=== PATIENT | female | born 2000 | race African-American/Black ===

== ENCOUNTER 2020-03-20 13:25 | Emergency (ER) | payer OTHER ==
[2020-03-20 13:43] VITALS: BP 128/91; PULSE 100; RESP 18; TEMP 97.9
--- NOTE | 2020-03-20 14:52 | ED ---
Female Urogenital HPI - General Chief complaint: Vaginal Bleeding Stated complaint: 13wks preg, spotting Time Seen by Provider: 03/20/20 14:25 Source: patient Mode of arrival: ambulatory Limitations: no limitations - History of Present Illness Initial comments: 20-year-old female with history of hypertension, irregular periods as well as preeclampsia and presenting today for chief complaint of increased bleeding and . Patient states that she has very regular periods she states she has one or 2 a year. Patient states she has not any control and had a positive test on February 05 . Patient states that she did have symptoms that time including nausea in the morning. Patient states she has not had very many issues with vomiting she denies having any issues with abdominal pain or cramping. Patient states that 3 days ago she had spotting is very light. Patient states that she went to the [facility] where she had an ultrasound and blood work done. Patient states she was told everything was okay with baby at that time. Patient states that yesterday she had no bleeding but today she had slightly increased from the bleeding 3 days ago. States it's brownish/bright red. Patient states she continues to not have any cramping she denies any headaches vision changes shortness breath lighthead edness or leg swelling. Patient denies additional complaints. Upon arrival patient appears nontoxic in no acute distress, she states that bleeding has been on and off. Pt OBGYN is in [facility] and she is unsure of the physicians name. Unsure of ABO/Rh. Pt signed paper work to obtain records from [facility]. [facility] note mention patient stating she took test 2 weeks ago, patient history varies between visits. - Related Data Home Medications Medication Instructions Recorded Confirmed No Known Home Medications 03/20/20 03/20/20 Allergies Allergy/AdvReac Type Severity Reaction Status Date / Time No Known Allergies Allergy Verified 03/20/20 17:00 Review of Systems ROS Statement: Those systems with pertinent positive or pertinent negative responses have been documented in the HPI. ROS Other: All systems not noted in ROS Statement are negative. Past Medical History Past Medical History: No Reported History History of Any Multi-Drug Resistant Organisms: None Reported Past Surgical History: No Surgical Hx Reported Smoking Status: Never smoker Past Alcohol Use History: None Reported Past Drug Use History: None Reported General Exam - General Exam Comments Initial Comments: General: The patient is awake and alert, in no distress Eye: +3 mm pupils are equal, round and reactive to light, extra-ocular movements are intact. No nystagmus. There is normal conjunctiva bilaterally. No signs of icterus. Ears, nose, mouth and throat: There are moist mucous membranes and no oral lesions. Neck: The neck is supple, there is no tenderness or JVD. Cardiovascular: There is a regular rate and rhythm. No murmur, rub or gallop is appreciated. Respiratory: Lungs are clear to auscultation, respirations are non-labored, breath sounds are equal. No wheezes, stridor, rales, or rhonchi. Gastrointestinal: [Soft, non-distended, non-tender abdomen without masses or organomegaly noted. There is no rebound or guarding present. Pelvic: os appear closed. blood products coming from os, mild bleeding Musculoskeletal: Normal ROM, no tenderness. Strength 5/5. Sensation intact. radial pulses equal bilaterally 2+. Neurological: A&O x 3. CN II-XII intact, There are no obvious motor or sensory deficits. Coordination appears grossly intact. Speech is normal. Skin: Skin is warm and dry and no rashes or lesions are noted. Psychiatric: Cooperative, appropriate mood & affect, normal judgment. Limitations: no limitations Course Vital Signs 03/20/20 13:40 Temperature 97.9 F Pulse Rate 100 Respiratory 18 Rate Blood Pressure 128/91 O2 Sat by Pulse 98 Oximetry Medical Decision Making - Medical Decision Making Labs stable. HgB stable. ABO +, no antibodies. Pt hcg 2 days ago 2900 today 1200. IUP on US at [facility] gestational sac without yolk, IUP. Pt today no sac, products in ABEBE. Patient felt with decreasing HCG, and changes on US favorable for spontaneous . Discussed case with attending Dr. Leal who is agreeable to discharge with OBGYN f/u. Pt agreeable. - Lab Data Result diagrams: 03/20/20 14:58 03/20/20 14:58 Lab Results 03/20/20 03/20/20 03/20/20 Range/Units 14:58 14:58 14:58 WBC 5.3 (4.0-11.0) k/uL RBC 5.11 (3.80-5.40) m/uL Hgb 12.9 (11.4-16.0) gm/dL Hct 40.6 (34.0-46.0) % MCV 79.4 L (80.0-100.0) fL MCH 25.2 (25.0-35.0) pg MCHC 31.8 (31.0-37.0) g/dL RDW 13.6 (11.5-15.5) % Plt Count 234 (150-450) k/uL MPV 9.3 Neutrophils % 39 % Lymphocytes % 49 % Monocytes % 5 % Eosinophils % 3 % Basophils % 1 % Neutrophils # 2.1 (1.3-7.7) k/uL Lymphocytes # 2.6 (1.0-4.8) k/uL Monocytes # 0.3 (0-1.0) k/uL Eosinophils # 0.2 (0-0.7) k/uL Basophils # 0.0 (0-0.2) k/uL Sodium 138 (137-145) mmol/L Potassium 4.0 (3.5-5.1) mmol/L Chloride 108 H (98-107) mmol/L Carbon Dioxide 22 (22-30) mmol/L Anion Gap 8 mmol/L BUN 5 L (7-17) mg/dL Creatinine 0.66 (0.52-1.04) mg/dL Est GFR (CKD-EPI)AfAm >90 (>60 ml/min/1.73 sqM) Est GFR (CKD-EPI)NonAf >90 (>60 ml/min/1.73 sqM) Glucose 101 H (74-99) mg/dL Calcium 9.6 (8.4-10.2) mg/dL Total Bilirubin 0.7 (0.2-1.3) mg/dL AST 21 (14-36) U/L ALT 12 (4-34) U/L Alkaline Phosphatase 65 (38-126) U/L Total Protein 7.7 (6.3-8.2) g/dL Albumin 4.4 (3.5-5.0) g/dL HCG, Quant 1200.9 mIU/mL Urine Color Yellow Urine Appearance Cloudy H (Clear) Urine pH 6.0 (5.0-8.0) Ur Specific [place] 1.018 (1.001-1.035) Urine Protein 1+ H (Negative) Urine Glucose (UA) Negative (Negative) Urine Ketones Negative (Negative) Urine Blood Large H (Negative) Urine Nitrite Negative (Negative) Urine Bilirubin Negative (Negative) Urine Urobilinogen <2.0 (<2.0) mg/dL Ur Leukocyte Esterase Large H (Negative) Urine RBC >182 H (0-5) /hpf Urine WBC 54 H (0-5) /hpf Ur Squamous Epith Cells 2 (0-4) /hpf Urine Bacteria Occasional H (None) /hpf Urine Mucus Moderate H (None) /hpf Blood Type Blood Type Recheck Bld Type Recheck Status 03/20/20 Range/Units 15:39 WBC (4.0-11.0) k/uL RBC (3.80-5.40) m/uL Hgb (11.4-16.0) gm/dL Hct (34.0-46.0) % MCV (80.0-100.0) fL MCH (25.0-35.0) pg MCHC (31.0-37.0) g/dL RDW (11.5-15.5) % Plt Count (150-450) k/uL MPV Neutrophils % % Lymphocytes % % Monocytes % % Eosinophils % % Basophils % % Neutrophils # (1.3-7.7) k/uL Lymphocytes # (1.0-4.8) k/uL Monocytes # (0-1.0) k/uL Eosinophils # (0-0.7) k/uL Basophils # (0-0.2) k/uL Sodium (137-145) mmol/L Potassium (3.5-5.1) mmol/L Chloride (98-107) mmol/L Carbon Dioxide (22-30) mmol/L Anion Gap mmol/L BUN (7-17) mg/dL Creatinine (0.52-1.04) mg/dL Est GFR (CKD-EPI)AfAm (>60 ml/min/1.73 sqM) Est GFR (CKD-EPI)NonAf (>60 ml/min/1.73 sqM) Glucose (74-99) mg/dL Calcium (8.4-10.2) mg/dL Total Bilirubin (0.2-1.3) mg/dL AST (14-36) U/L ALT (4-34) U/L Alkaline Phosphatase (38-126) U/L Total Protein (6.3-8.2) g/dL Albumin (3.5-5.0) g/dL HCG, Quant mIU/mL Urine Color Urine Appearance (Clear) Urine pH (5.0-8.0) Ur Specific M[place] (1.001-1.035) Urine Protein (Negative) Urine Glucose (UA) (Negative) Urine Ketones (Negative) Urine Blood (Negative) Urine Nitrite (Negative) Urine Bilirubin (Negative) Urine Urobilinogen (<2.0) mg/dL Ur Leukocyte Esterase (Negative) Urine RBC (0-5) /hpf Urine WBC (0-5) /hpf Ur Squamous Epith Cells (0-4) /hpf Urine Bacteria (None) /hpf Urine Mucus (None) /hpf Blood Type AB Positive Blood Type Recheck No Previous Record Bld Type Recheck Status [facility] ONLY Disposition Clinical Impression: Miscarriage Disposition: HOME SELF-CARE Condition: Good Instructions (If sedation given, give patient instructions): Threatened Miscarriage (ED) Additional Instructions: Please use medication as discussed. Please follow-up with OBGYN in next week. Please return to emergency room if the symptoms increase or worsen or for any other concerns. Is patient prescribed a controlled substance at d/c from ED?: No Referrals: Nonstaff,Physician [Primary Care Provider] - 1-2 days Time of Disposition: 17:24
[2020-03-20 15:07] LABS: Basophils % (A) 1 %; Eosinophils # (A) 0.2 k/uL (0-0.7); Eosinophils % (A) 3 %; HCT 40.6 % (34.0-46.0); HGB 12.9 gm/dL (11.4-16.0); Lymphocytes # (A) 2.6 k/uL (1.0-4.8); Lymphocytes % (A) 49 %; MCH 25.2 pg (25.0-35.0); MCHC 31.8 g/dL (31.0-37.0); MCV 79.4 fL (80.0-100.0); Mean Platelet Volume 9.3; Monocytes # (A) 0.3 k/uL (0-1.0); Monocytes % (A) 5 %; Neutrophils # (A) 2.1 k/uL (1.3-7.7); Neutrophils % (A) 39 %; Platelet Count 234 k/uL (150-450); RBC 5.11 m/uL (3.80-5.40); RDW 13.6 % (11.5-15.5); WBC 5.3 k/uL (4.0-11.0)
[2020-03-20 15:12] LABS: Appearance,Urine Cloudy (Clear); Bacteria,Urine Occasional /hpf; Bilirubin,Urine Negative (Negative); Blood,Urine Large (Negative); Color,Urine Yellow; Glucose,Urine (UA) Negative (Negative); Ketones,Urine Negative (Negative); Leukocyte Esterase,Urine Large (Negative); Mucus,Urine Moderate /hpf; Nitrite,Urine Negative (Negative); Protein,Urine 1+ (Negative); RBC,Urine >182 /hpf (0-5); Specific Gravity,Urine 1.018 (1.001-1.035); Squamous Epithelial Cell,Urine 2 /hpf (0-4); Urobilinogen,Urine <2.0 mg/dL (<2.0); WBC,Urine 54 /hpf (0-5)
[2020-03-20 15:15] LABS: ALT 12 U/L (4-34); AST 21 U/L (14-36); African American GFR (CKD) >90 (>60 ml/min/1.73 sqM); Albumin 4.4 g/dL (3.5-5.0); Alkaline Phosphatase 65 U/L (38-126); Anion Gap 8 mmol/L; Blood Urea Nitrogen 5 mg/dL (7-17); Calcium 9.6 mg/dL (8.4-10.2); Carbon Dioxide 22 mmol/L (22-30); Chloride 108 mmol/L (98-107); Glucose 101 mg/dL (74-99); Non-African American GFR(CKD) >90 (>60 ml/min/1.73 sqM); Sodium 138 mmol/L (137-145); Total Bilirubin 0.7 mg/dL (0.2-1.3); Total Protein 7.7 g/dL (6.3-8.2)
[2020-03-20 15:31] LABS: HCG,Quantitative Serum 1200.9 mIU/mL
--- NOTE | 2020-03-20 17:14 | US ---
EXAMINATION TYPE: Transabdominal DATE OF EXAM: 03/20/2020 4:45 PM COMPARISON: NONE CLINICAL HISTORY: bleeding in . intermittent vaginal bleeding for 3 days EXAM PERFORMED: Transabdominal (TA) EXAM MEASUREMENTS: GESTATIONAL AGE / DATING Physician Established: Not yet established Dates by LMP: LMP unknown Dates by First Scan: No previous this is first scan Dates by Current Scan for: No IUP seen at this time MATERNAL ANATOMY Uterus: 10.3 x 4.9 x 5.4cm Right Ovary: 2.3 x 1.5 x 1.9cm Left Ovary: 2.5 x 1.6 x 1.5cm Post CDS / Adnexa: appears wnl Presence of free fluid: no GESTATION / SURVEY IUP: no evidence of IUP Date of LMP: unknown Beta HcG (if available): 1200 No evidence of IUP, anechoic area = 1.1cm within ABEBE ?possible GS IMPRESSION: There is small fluid collection in the lower uterine segment that does not have appearance of a gesta tional sac. Uterine fundus is empty. No adnexal mass. No free fluid in the pelvis.
== END 2020-03-20 18:00 | disposition home or self-care (01) ==
LOC: EC 13:25
DX: O03.9 Complete or unspecified spontaneous abortion without complication (principal)
CPT/HCPCS: 36415; 76801; 80053; 81001; 84702; 85025; 86900; 86901; 99284

== ENCOUNTER 2020-04-05 21:41 | Emergency (ER) | payer OTHER ==
[2020-04-05 21:47] VITALS: BP 126/82; PULSE 102; RESP 18; TEMP 97.9
[2020-04-05] MEDS ORDERED: SODIUM CHLORIDE 0.9% 1,000 ML IV ONE (21:59)
[2020-04-05] MEDS ORDERED: KETOROLAC 15 MG/ML 1 ML VIAL IVP STA (22:00)
--- NOTE | 2020-04-05 22:09 | ED ---
General Adult HPI - General Chief complaint: Vaginal Bleeding Stated complaint: Revisit Vaginal Bleeding/Miscarriage Time Seen by Provider: 04/05/20 21:48 Source: patient Mode of arrival: ambulatory Limitations: no limitations - History of Present Illness Initial comments: 20-year-old female patient presents to the emergency department today for evaluation of heavy vaginal bleeding. Patient states that she was diagnosed with spontaneous a little over 2 weeks ago. States that she was informed should have bleeding for around 2 weeks and that should cease. States that over the last week the bleeding has become much more heavy. States that today she has soaked through 4-5 pads. States she did have a large blood clot prior to arrival was about the size of her fist. She is reporting lower abdominal and low back cramping. She is . She is that she is feeling a little woozy and weak today. Denies history of bleeding or clotting disorder. She has not been able to follow up with her OBGYN because she is from out of town. Patient denies any recent rash, fever, chills, cough, shortness of breath, chest pain, nausea, vomiting, diarrhea, constipation, back pain, numbness, tingling, hematuria, dysuria, urinary urgency, urinary frequency, headache, visual changes, or any other complaints. - Related Data Home Medications Medication Instructions Recorded Confirmed Multivitamin/Iron/Folic Acid 1 tab PO DAILY 04/05/20 04/05/20 [Centrum Women Tablet] Allergies Allergy/AdvReac Type Severity Reaction Status Date / Time No Known Allergies Allergy Verified 04/05/20 23:23 Review of Systems ROS Statement: Those systems with pertinent positive or pertinent negative responses have been documented in the HPI. ROS Other: All systems not noted in ROS Statement are negative. Past Medical History Past Medical History: No Reported History History of Any Multi-Drug Resistant Organisms: None Reported Past Surgical History: No Surgical Hx Reported Smoking Status: Never smoker Past Alcohol Use History: None Reported Past Drug Use History: None Reported General Exam Limitations: no limitations General appearance: alert, in no apparent distress, other (Physical well- developed, well-nourished adult female patient in no acute distress. Vital signs upon presentation are temperature 97.9F, pulse 102, respirations 18, blood pressure 126/82, pulse ox 98% on room air.) Eye exam: Present: normal appearance, PERRL, EOMI. Absent: scleral icterus, conjunctival injection, periorbital swelling ENT exam: Present: normal exam, normal oropharynx, mucous membranes moist Respiratory exam: Present: normal lung sounds bilaterally. Absent: respiratory distress, wheezes, rales, rhonchi, stridor Cardiovascular Exam: Present: normal rhythm, tachycardia, normal heart sounds. Absent: systolic murmur, diastolic murmur, rubs, gallop, clicks GI/Abdominal exam: Present: soft, tenderness (Left sided abdominal tenderness), normal bowel sounds. Absent: distended, guarding, rebound, rigid External exam: Present: normal external exam Speculum exam: Present: vaginal bleeding (mild, no blood clots noted, cervical os about 1cm) Neurological exam: Present: alert, oriented X3, CN II-XII intact Psychiatric exam: Present: normal affect, normal mood Skin exam: Present: warm, dry, intact, normal color. Absent: rash Course Vital Signs 04/05/20 21:44 Temperature 97.9 F Pulse Rate 102 H Respiratory 18 Rate Blood Pressure 126/82 O2 Sat by Pulse 98 Oximetry Medical Decision Making - Medical Decision Making 20-year-old female patient presented to the emergency department today for evaluation of heavy vaginal bleeding for the last 5 or 6 days. She was diagnosed with spontaneous on 03/20/2020. Patient has been able to follow-up with her [employer]. Physical examination revealed soft nontender abd omen. Did perform pelvic examination which showed mild dark red bleeding with no clots at this time. Cervical os was roughly 1 cm. Labs reviewed and did reveal hemoglobin at 10.9. Slightly decreased from previous labs on 03 20. Vital signs have been stable while in the department, normal blood pressures, normal heart rate. She has had no fainting episodes and is currently feeling well. She'll be discharged with her [employer] for recheck as soon as possible, she is urged discuss possibility of D&C if her symptoms do not improve. Return parameters were discussed in detail. She verbalizes understanding and agrees with this plan. - Lab Data Result diagrams: 04/05/20 22:21 04/05/20 22:21 Lab Results 04/05/20 04/05/20 04/05/20 Range/Units 22:21 22:21 22:21 WBC 7.9 (4.0-11.0) k/uL RBC 4.34 (3.80-5.40) m/uL Hgb 10.9 L (11.4-16.0) gm/dL Hct 34.3 (34.0-46.0) % MCV 79.0 L (80.0-100.0) fL MCH 25.0 (25.0-35.0) pg MCHC 31.7 (31.0-37.0) g/dL RDW 14.4 (11.5-15.5) % Plt Count 238 (150-450) k/uL MPV 7.8 Neutrophils % 53 % Lymphocytes % 38 % Monocytes % 4 % Eosinophils % 2 % Basophils % 0 % Neutrophils # 4.2 (1.3-7.7) k/uL Lymphocytes # 3.0 (1.0-4.8) k/uL Monocytes # 0.3 (0-1.0) k/uL Eosinophils # 0.2 (0-0.7) k/uL Basophils # 0.0 (0-0.2) k/uL Hypochromasia Slight Sodium 137 (137-145) mmol/L Potassium 4.0 (3.5-5.1) mmol/L Chloride 107 (98-107) mmol/L Carbon Dioxide 24 (22-30) mmol/L Anion Gap 6 mmol/L BUN 5 L (7-17) mg/dL Creatinine 0.71 (0.52-1.04) mg/dL Est GFR (CKD-EPI)AfAm >90 (>60 ml/min/1.73 sqM) Est GFR (CKD-EPI)NonAf >90 (>60 ml/min/1.73 sqM) Glucose 104 H (74-99) mg/dL Calcium 9.3 (8.4-10.2) mg/dL Total Bilirubin 0.4 (0.2-1.3) mg/dL AST 21 (14-36) U/L ALT 14 (4-34) U/L Alkaline Phosphatase 61 (38-126) U/L Total Protein 6.7 (6.3-8.2) g/dL Albumin 3.9 (3.5-5.0) g/dL HCG, Quant 130.3 mIU/mL Blood Type AB Positive Blood Type Recheck AB Pos Bld Type Recheck Status No - Radiology Data Radiology results: report reviewed, image reviewed Ultrasound was obtained report reviewed in its entirety. Impression by Dr. Potter shows Complex fluid in the endometrial cavity also the cervix could relate to blood clot incomplete . No intrauterine gestational sac. No evidence of ectopic Disposition Clinical Impression: Miscarriage Disposition: HOME SELF-CARE Condition: Good Instructions (If sedation given, give patient instructions): Miscarriage (ED) Additional Instructions: Follow-up with your [employer] for recheck as soon as possible. Return to the emergency department for increased pain, uncontrolled bleeding, fainting, or fever. Return for any other new, worsening, or concerning symptoms. Is patient prescribed a controlled substance at d/c from ED?: No Referrals: None,Stated [Primary Care Provider] - 1-2 days Time of Disposition: 23:46
[2020-04-05 22:28] LABS: Basophils % (A) 0 %; Eosinophils # (A) 0.2 k/uL (0-0.7); Eosinophils % (A) 2 %; HCT 34.3 % (34.0-46.0); HGB 10.9 gm/dL (11.4-16.0); Hypochromasia Slight; Lymphocytes % (A) 38 %; MCHC 31.7 g/dL (31.0-37.0); Mean Platelet Volume 7.8; Monocytes # (A) 0.3 k/uL (0-1.0); Monocytes % (A) 4 %; Neutrophils # (A) 4.2 k/uL (1.3-7.7); Neutrophils % (A) 53 %; Platelet Count 238 k/uL (150-450); RBC 4.34 m/uL (3.80-5.40); RDW 14.4 % (11.5-15.5); WBC 7.9 k/uL (4.0-11.0)
[2020-04-05 22:36] LABS: ALT 14 U/L (4-34); AST 21 U/L (14-36); African American GFR (CKD) >90 (>60 ml/min/1.73 sqM); Albumin 3.9 g/dL (3.5-5.0); Alkaline Phosphatase 61 U/L (38-126); Anion Gap 6 mmol/L; Blood Urea Nitrogen 5 mg/dL (7-17); Calcium 9.3 mg/dL (8.4-10.2); Carbon Dioxide 24 mmol/L (22-30); Chloride 107 mmol/L (98-107); Glucose 104 mg/dL (74-99); Non-African American GFR(CKD) >90 (>60 ml/min/1.73 sqM); Sodium 137 mmol/L (137-145); Total Bilirubin 0.4 mg/dL (0.2-1.3); Total Protein 6.7 g/dL (6.3-8.2)
[2020-04-05 22:53] LABS: HCG,Quantitative Serum 130.3 mIU/mL
--- NOTE | 2020-04-05 23:36 | US ---
EXAMINATION TYPE: Transabdominal DATE OF EXAM: 04/05/2020 11:01 PM COMPARISON: US 03/20/2020 CLINICAL HISTORY: pain/bleeding/[id number] ago. Pain and bleeding, miscarriage 2 weeks ago. . EXAM PERFORMED: Transvaginal (TV) and Transabdominal (TA) EXAM MEASUREMENTS: GESTATIONAL AGE / DATING Physician Established: Not yet established Dates by LMP: Unknown Dates by First Scan: No IUP seen. Dates by Current Scan for: No definite IUP seen. MATERNAL ANATOMY Uterus: 10.7 x 6.4 x 5.2 cm. Anteverted. Complex area with peripheral/ partially internal vascularity seen in upper endometrium: 2.2 x 1.7 x 2.2 cm. Complex area seen in cervix: 2.7 x 2.6 x 1.3 cm. Right Ovary: 3.8 x 1.7 x 2.3 cm. Anechoic area seen measuring 1.3 x 1.0 x 0.7 cm. Left Ovary: 3.1 x 1.7 x 2.2 cm. Post CDS / Adnexa: Minimal fluid seen in cul de sac. Vessels measure up to 4.7 mm in left adnexa. Presence of free fluid: Yes in CDS. Presence of corpus luteal cyst: Not definitely seen. GESTATION / SURVEY IUP: No definite IUP seen at this time. Two complex areas seen, one in upper endometrium and one in cervix. No pole seen. Date of LMP: Unknown Beta HcG (if available): 130.3 IMPRESSION: Complex fluid in the endometrial cavity and also in the cervix could relate to blood clot and incompl ete . No intrauterine gestational sac seen. No evidence of ectopic .
== END 2020-04-06 00:08 | disposition home or self-care (01) ==
LOC: EC 21:41
DX: O03.9 Complete or unspecified spontaneous abortion without complication (principal); R00.0 Tachycardia, unspecified
CPT/HCPCS: 36415; 86900; 86901; 80053; 85025; 84702; 76801; 76817; 99284; 96374; 96361; J1885

== ENCOUNTER 2021-06-06 14:50 | Emergency (ER) | payer OTHER ==
[2021-06-06 14:56] VITALS: RESP 20
[2021-06-06 15:42] LABS: Appearance,Urine Clear (Clear); Bilirubin,Urine Negative (Negative); Blood,Urine Negative (Negative); Color,Urine Yellow; Glucose,Urine (UA) Negative (Negative); Ketones,Urine Negative (Negative); Leukocyte Esterase,Urine Negative (Negative); Nitrite,Urine Negative (Negative); PH, Urine 7.5 (5.0-8.0); Protein,Urine Trace (Negative); Specific Gravity,Urine 1.021 (1.001-1.035)
--- NOTE | 2021-06-06 16:00 | ED ---
Abdominal Pain HPI - General Chief Complaint: Abdominal Pain Stated Complaint: Female Time Seen by Provider: 06/06/21 15:00 Source: patient Mode of arrival: ambulatory Limitations: no limitations - History of Present Illness Initial Comments: Patient is a 21-year-old female who presents to the emergency department for intermittent pelvic pain 2 weeks. Patient states she has been experiencing mild pelvic pain bilaterally. She also reports increased urinary urgency/frequency. She denies dysuria. She does note a change in her vaginal discharge odor, unable to describe. Vaginal discharge is yellow in color. She denies vaginal bleeding. Patient has concern that she is . She does not remember her last menstrual period as she reports her periods are irregular and she does not track them. She is sexually active with one partner. She would like to be tested for STIs today. Patient denies fever, chills, generalized weakness, headache, shortness of breath, chest pain, palpitations, dizziness, abdominal pain, nausea, vomiting, and diarrhea. - Related Data Home Medications Medication Instructions Recorded Confirmed No Known Home Medications 06/06/21 06/06/21 Allergies Allergy/AdvReac Type Severity Reaction Status Date / Time No Known Allergies Allergy Verified 06/06/21 16:02 Review of Systems ROS Statement: Those systems with pertinent positive or pertinent negative responses have been documented in the HPI. ROS Other: All systems not noted in ROS Statement are negative. Past Medical History Past Medical History: No Reported History History of Any Multi-Drug Resistant Organisms: None Reported Past Surgical History: No Surgical Hx Reported Past Psychological History: No Psychological Hx Reported Smoking Status: Never smoker Past Alcohol Use History: None Reported Past Drug Use History: None Reported General Exam Limitations: no limitations General appearance: alert, in no apparent distress Head exam: Present: atraumatic, normocephalic, normal inspection Eye exam: Present: normal appearance, PERRL, EOMI. Absent: scleral icterus, conjunctival injection, periorbital swelling ENT exam: Present: normal exam Neck exam: Present: normal inspection, full ROM Respiratory exam: Present: normal lung sounds bilaterally. Absent: respiratory distress, wheezes, rales, rhonchi, stridor GI/Abdominal exam: Present: soft. Absent: distended, tenderness, guarding, rebound, rigid External exam: Present: normal external exam Back exam: Present: full ROM Neurological exam: Present: alert, oriented X3, CN II-XII intact Psychiatric exam: Present: normal affect, normal mood Skin exam: Present: warm, dry, intact, normal color. Absent: rash Course Vital Signs 06/06/21 06/06/21 14:53 19:35 Temperature 97.8 F 98.1 F Pulse Rate 98 79 Respiratory 20 20 Rate Blood Pressure 123/78 118/75 O2 Sat by Pulse 100 100 Oximetry Medical Decision Making - Medical Decision Making Patient is a 21-year-old female who presents with intermittent pelvic pain 2 weeks. Thorough history and examination were performed. I did test the patient for gonorrhea, chlamydia, Trichomonas, yeast, and bacterial vaginosis. Trichomonas is negative. Urinalysis does not show evidence for infection. U[place] [address].9. ultrasound reveals a heterogeneous interface of the placenta with the uterine wall and adjacent heterogeneous uterus, given prior findings of fibroids and he's a fever to represent fibroids and less likely placenta abruption. Placenta late is up to 4.0 cm. Patient is 20 weeks and 3 days based on ultrasound. Results discussed with Dr. Horowitz. Patient will be discharged with referral to Dr. Horowitz. She is instructed to schedule an appointment with Dr. Horowitz in 1-2 days. Patient verbalizes understanding and is agreeable to plan. Return parameters discussed. Dr. Leal is my attending. - Lab Data Result diagrams: 06/06/21 19:35 06/06/21 19:35 Lab Results 06/06/21 06/06/21 06/06/21 Range/Units 15:15 15:15 15:36 WBC (3.8-10.6) k/uL RBC (3.80-5.40) m/uL Hgb (11.4-16.0) gm/dL Hct (34.0-46.0) % MCV (80.0-100.0) fL MCH (25.0-35.0) pg MCHC (31.0-37.0) g/dL RDW (11.5-15.5) % Plt Count (150-450) k/uL MPV Neutrophils % % Lymphocytes % % Monocytes % % Eosinophils % % Basophils % % Neutrophils # (1.3-7.7) k/uL Lymphocytes # (1.0-4.8) k/uL Monocytes # (0-1.0) k/uL Eosinophils # (0-0.7) k/uL Basophils # (0-0.2) k/uL Hypochromasia Sodium (137-145) mmol/L Potassium (3.5-5.1) mmol/L Chloride (98-107) mmol/L Carbon Dioxide (22-30) mmol/L Anion Gap mmol/L BUN (7-17) mg/dL Creatinine (0.52-1.04) mg/dL Est GFR (CKD-EPI)AfAm (>60 ml/min/1.73 sqM) Est GFR (CKD-EPI)NonAf (>60 ml/min/1.73 sqM) Glucose (74-99) mg/dL Calcium (8.4-10.2) mg/dL Total Bilirubin (0.2-1.3) mg/dL AST (14-36) U/L ALT (4-34) U/L Alkaline Phosphatase (38-126) U/L Total Protein (6.3-8.2) g/dL Albumin (3.5-5.0) g/dL HCG, Quant mIU/mL Urine Color Yellow Urine Appearance Clear (Clear) Urine pH 7.5 (5.0-8.0) Ur Specific [place] 1.021 (1.001-1.035) Urine Protein Trace H (Negative) Urine Glucose (UA) Negative (Negative) Urine Ketones Negative (Negative) Urine Blood Negative (Negative) Urine Nitrite Negative (Negative) Urine Bilirubin Negative (Negative) Urine Urobilinogen 3.0 (<2.0) mg/dL Ur Leukocyte Esterase Negative (Negative) Urine HCG, Qual Detected (Not Detectd) Trichomonas Ag (Rapid) Negative (Negative) Blood Type Blood Type Recheck Bld Type Recheck Status 06/06/21 06/06/21 06/06/21 Range/Units 17:02 19:35 19:35 WBC 8.0 (3.8-10.6) k/uL RBC 4.19 (3.80-5.40) m/uL Hgb 10.6 L (11.4-16.0) gm/dL Hct 33.5 L (34.0-46.0) % MCV 79.8 L (80.0-100.0) fL MCH 25.3 (25.0-35.0) pg MCHC 31.7 (31.0-37.0) g/dL RDW 13.9 (11.5-15.5) % Plt Count 191 (150-450) k/uL MPV 8.4 Neutrophils % 56 % Lymphocytes % 37 % Monocytes % 4 % Eosinophils % 1 % Basophils % 0 % Neutrophils # 4.5 (1.3-7.7) k/uL Lymphocytes # 2.9 (1.0-4.8) k/uL Monocytes # 0.3 (0-1.0) k/uL Eosinophils # 0.1 (0-0.7) k/uL Basophils # 0.0 (0-0.2) k/uL Hypochromasia Slight Sodium 136 L (137-145) mmol/L Potassium 4.3 (3.5-5.1) mmol/L Chloride 108 H (98-107) mmol/L Carbon Dioxide 21 L (22-30) mmol/L Anion Gap 7 mmol/L BUN 5 L (7-17) mg/dL Creatinine 0.54 (0.52-1.04) mg/dL Est GFR (CKD-EPI)AfAm >90 (>60 ml/min/1.73 sqM) Est GFR (CKD-EPI)NonAf >90 (>60 ml/min/1.73 sqM) Glucose 82 (74-99) mg/dL Calcium 9.2 (8.4-10.2) mg/dL Total Bilirubin 0.5 (0.2-1.3) mg/dL AST 21 (14-36) U/L ALT 11 (4-34) U/L Alkaline Phosphatase 62 (38-126) U/L Total Protein 7.1 (6.3-8.2) g/dL Albumin 3.6 (3.5-5.0) g/dL HCG, Quant 77598.9 mIU/mL Urine Color Urine Appearance (Clear) Urine pH (5.0-8.0) Ur Specific [place] (1.001-1.035) Urine Protein (Negative) Urine Glucose (UA) (Negative) Urine Ketones (Negative) Urine Blood (Negative) Urine Nitrite (Negative) Urine Bilirubin (Negative) Urine Urobilinogen (<2.0) mg/dL Ur Leukocyte Esterase (Negative) Urine HCG, Qual (Not Detectd) Trichomonas Ag (Rapid) (Negative) Blood Type Blood Type Recheck Bld Type Recheck Status 06/06/21 Range/Units 19:35 WBC (3.8-10.6) k/uL RBC (3.80-5.40) m/uL Hgb (11.4-16.0) gm/dL Hct (34.0-46.0) % MCV (80.0-100.0) fL MCH (25.0-35.0) pg MCHC (31.0-37.0) g/dL RDW (11.5-15.5) % Plt Count (150-450) k/uL MPV Neutrophils % % Lymphocytes % % Monocytes % % Eosinophils % % Basophils % % Neutrophils # (1.3-7.7) k/uL Lymphocytes # (1.0-4.8) k/uL Monocytes # (0-1.0) k/uL Eosinophils # (0-0.7) k/uL Basophils # (0-0.2) k/uL Hypochromasia Sodium (137-145) mmol/L Potassium (3.5-5.1) mmol/L Chloride (98-107) mmol/L Carbon Dioxide (22-30) mmol/L Anion Gap mmol/L BUN (7-17) mg/dL Creatinine (0.52-1.04) mg/dL Est GFR (CKD-EPI)AfAm (>60 ml/min/1.73 sqM) Est GFR (CKD-EPI)NonAf (>60 ml/min/1.73 sqM) Glucose (74-99) mg/dL Calcium (8.4-10.2) mg/dL Total Bilirubin (0.2-1.3) mg/dL AST (14-36) U/L ALT (4-34) U/L Alkaline Phosphatase (38-126) U/L Total Protein (6.3-8.2) g/dL Albumin (3.5-5.0) g/dL HCG, Quant mIU/mL Urine Color Urine Appearance (Clear) Urine pH (5.0-8.0) Ur Specific [place] (1.001-1.035) Urine Protein (Negative) Urine Glucose (UA) (Negative) Urine Ketones (Negative) Urine Blood (Negative) Urine Nitrite (Negative) Urine Bilirubin (Negative) Urine Urobilinogen (<2.0) mg/dL Ur Leukocyte Esterase (Negative) Urine HCG, Qual (Not Detectd) Trichomonas Ag (Rapid) (Negative) Blood Type AB Positive Blood Type Recheck AB Pos Bld Type Recheck Status No Disposition Clinical Impression: Pelvic cramping, Disposition: HOME SELF-CARE Condition: Good Instructions (If sedation given, give patient instructions): (ED) Additional Instructions: Follow-up with OB at earliest available appointment. Return to the emergency department if you experience new, concerning, or worsening symptoms, including but not limited to severe pelvic/abdominal pain and vaginal bleeding. l Is patient prescribed a controlled substance at d/c from ED?: No Referrals: Antonio Sanchez MD [Primary Care Provider] - 1-2 days Radha Horowitz DO [Doctor of Osteopathic Medicine] - 1-2 days Time of Disposition: 20:37
--- NOTE | 2021-06-06 18:55 | US ---
EXAMINATION TYPE: US OB >= 14 wk fetus DATE OF EXAM: 06/06/2021 COMPARISON: US, this is first US for this . CLINICAL HISTORY: positive urine HCG Patient has irregular periods. . Patient is having minima l pelvic cramping, no vaginal bleeding. *Not an anatomy scan, limited ER growth study. TECHNIQUE: Transabdominal (TA) GESTATIONAL AGE / DATING Physician Established: Not yet established. Dates by LMP: Unknown. Dates by First Scan: This is first scan. Dates by Current Scan: (20 weeks/3 days) EDC: 10/21/2021 SURVEY IUP: Single PLACENTA: Anterior. Complex area seen, possible jones measurin.9 x 2.7 x 1.9 cm. Placenta appears heterogeneous within posterior portion. Arrow shown on images. Pt is having mild c ramping, no vaginal bleeding. PREVIA: No Previa MIS: 13.9 cm Normal CERVICAL LENGTH (transabdominal: norm > 3.0cm): 3.2 cm BIOMETRY PRESENTATION: Breech BPD: 4.65 cm 20 weeks / 0 days HC: 18.08 cm 20 weeks / 3 days AC: 15.69 cm 20 weeks / 6 days FL: 3.47 cm 21 weeks / 0 days ESTIMATED WEIGHT IN GRAMS: 378.78 grams ESTIMATED WEIGHT IN LBS/OZ: 0 lbs. 13 oz. WEIGHT PERCENTAGE BASED ON ESTABLISHED DATES: % HC/AC: 1.15 Normal FL/AC: 22.11 HEART RATE: 150 bpm RHYTHM: Normal IMPRESSION: 1. Heterogenous interface of the placenta with the uterine wall and adjacent heterogenous uterus, giv en prior findings of fibroids in 2020 these are favored to represent fibroids and less likely placent al abruption. Close clinical follow-up is recommended. Consider short-term follow-up pelvic ultrasoun d in 7 days for stability. 2.Placenta Jones up to 4.0 cm.
[2021-06-06 19:40] VITALS: BP 118/75; PULSE 79; TEMP 98.1
[2021-06-06 19:55] LABS: Basophils % (A) 0 %; Eosinophils # (A) 0.1 k/uL (0-0.7); Eosinophils % (A) 1 %; HCT 33.5 % (34.0-46.0); HGB 10.6 gm/dL (11.4-16.0); Hypochromasia Slight; Lymphocytes # (A) 2.9 k/uL (1.0-4.8); Lymphocytes % (A) 37 %; MCH 25.3 pg (25.0-35.0); MCHC 31.7 g/dL (31.0-37.0); MCV 79.8 fL (80.0-100.0); Mean Platelet Volume 8.4; Monocytes # (A) 0.3 k/uL (0-1.0); Monocytes % (A) 4 %; Neutrophils # (A) 4.5 k/uL (1.3-7.7); Neutrophils % (A) 56 %; Platelet Count 191 k/uL (150-450); RBC 4.19 m/uL (3.80-5.40); RDW 13.9 % (11.5-15.5)
[2021-06-06 20:05] LABS: ALT 11 U/L (4-34); AST 21 U/L (14-36); African American GFR (CKD) >90 (>60 ml/min/1.73 sqM); Albumin 3.6 g/dL (3.5-5.0); Alkaline Phosphatase 62 U/L (38-126); Anion Gap 7 mmol/L; Blood Urea Nitrogen 5 mg/dL (7-17); Calcium 9.2 mg/dL (8.4-10.2); Carbon Dioxide 21 mmol/L (22-30); Chloride 108 mmol/L (98-107); Glucose 82 mg/dL (74-99); Non-African American GFR(CKD) >90 (>60 ml/min/1.73 sqM); Potassium 4.3 mmol/L (3.5-5.1); Sodium 136 mmol/L (137-145); Total Bilirubin 0.5 mg/dL (0.2-1.3); Total Protein 7.1 g/dL (6.3-8.2)
[2021-06-08 07:36] LABS: C. trachomatis,PCR Positive (Neg,Equiv); Chlamydia trachomatis Source Vagina; N. gonorrhoeae,PCR Negative (Neg,Equiv); Neisseria Source Vagina
== END 2021-06-06 20:43 | disposition home or self-care (01) ==
LOC: EC 14:50
DX: O26.892 Other specified pregnancy related conditions, second trimester (principal); R10.2 Pelvic and perineal pain; Z3A.20 20 weeks gestation of pregnancy
CPT/HCPCS: 36415; 76805; 80053; 81003; 81025; 84702; 85025; 86900; 86901; 87070; 87491; 87591; 87808; 99284

== ENCOUNTER 2021-10-21 19:52 | Inpatient (IN) | payer OTHER ==
[2021-10-21] MEDS: LACTATED RINGERS 1,000 ML IV SCH ×3 (22:10→23:15)
[2021-10-21 22:22] LABS: Basophils % (A) 1 %; Eosinophils # (A) 0.1 k/uL (0-0.7); Eosinophils % (A) 2 %; HCT 37.2 % (34.0-46.0); HGB 11.6 gm/dL (11.4-16.0); Hypochromasia Slight; Lymphocytes # (A) 2.3 k/uL (1.0-4.8); Lymphocytes % (A) 29 %; MCH 25.2 pg (25.0-35.0); MCHC 31.3 g/dL (31.0-37.0); MCV 80.5 fL (80.0-100.0); Mean Platelet Volume 8.1; Monocytes # (A) 0.4 k/uL (0-1.0); Monocytes % (A) 5 %; Neutrophils # (A) 4.8 k/uL (1.3-7.7); Neutrophils % (A) 61 %; Platelet Count 164 k/uL (150-450); RBC 4.62 m/uL (3.80-5.40); RDW 14.6 % (11.5-15.5); WBC 7.9 k/uL (3.8-10.6)
[2021-10-21 22:35] LABS: Amphetamine Screen,Urine Not Detected (NotDetected); Barbiturate Screen,Urine Not Detected (NotDetected); Benzodiazepines Screen,Urine Not Detected (NotDetected); Cocaine Screen,Urine Not Detected (NotDetected); Methadone Screen, Urine Not Detected (NotDetected); Opiate Screen,Urine Not Detected (NotDetected); Oxycodone Screen, Urine Not Detected (NotDetected); Phencyclidine Screen,Urine Not Detected (NotDetected); Tricyclic Antidepressant,Urine Not Detected (NotDetected); Urn Cannabinoid Scrn Not Detected (NotDetected)
[2021-10-21 22:37] LABS: Appearance,Urine Cloudy (Clear); Bacteria,Urine Rare /hpf; Bilirubin,Urine Negative (Negative); Blood,Urine Negative (Negative); Color,Urine Yellow; Glucose,Urine (UA) Negative (Negative); Ketones,Urine Negative (Negative); Leukocyte Esterase,Urine Large (Negative); Mucus,Urine Rare /hpf; Nitrite,Urine Negative (Negative); PH, Urine 6.5 (5.0-8.0); Protein,Urine Negative (Negative); RBC,Urine 2 /hpf (0-5); Specific Gravity,Urine 1.014 (1.001-1.035); Squamous Epithelial Cell,Urine 8 /hpf (0-4); Urobilinogen,Urine <2.0 mg/dL (<2.0); WBC,Urine 5 /hpf (0-5)
[2021-10-22] MEDS: LACTATED RINGERS 1,000 ML IV SCH ×4 (04:39→14:01)
--- NOTE | 2021-10-22 08:18 | P.HPOB ---
History of Present Illness H&P Date: 10/22/21 Chief Complaint: Intrauterine at 40 and one sevenths week This is a 21 year old 3 para 05/21/2001 woman with an estimated due date of 10/21/2021 who presented to labor and delivery triage on 10/21/2021 complaining of possible rupture of membranes. She had received the majority of her care in [place] however moved to the area 3 weeks ago with int ention of delivering here. She reports her has been uncomplicated however has been on aspirin for history of preeclampsia in a pre-she has a history of 2 normal spontaneous vaginal deliveries in 2019 and 2017. Her delivery in 2018 was induced at 36 weeks for preeclampsia. She had a normal term vaginal delivery without complication in 2019. Her was dated by a 20 week ultrasound. Upon initial evaluation in labor and delivery triage rupture of membranes was negative and she was not in active labor however during her observation. heart rate tracing showed multiple late appearing heart rate decelerations. These did resolve with IV fluid resuscitation however the patient was admitted for further observation. Throughout the night she had category 2 heart tones with overall good variability and accelerations however occasional episodes of both variable and late appearing decelerations. The she therefore was admitted this morning with plans for induction of labor. At this time her record from her previous clinic has been requested. Her blood type is AB+. The patient reports she did have group B strep testing done however does not know the results. Review of Systems All systems: negative Past Medical History Past Medical History: Hypertension History of Any Multi-Drug Resistant Organisms: None Reported Past Surgical History: No Surgical Hx Reported Past Anesthesia/Blood Transfusion Reactions: No Reported Reaction Past Psychological History: No Psychological Hx Reported Smoking Status: Never smoker Past Alcohol Use History: None Reported Past Drug Use History: None Reported Medications and Allergies Home Medications Medication Instructions Recorded Confirmed Type Aspirin 1 tab PO DAILY 10/21/21 10/21/21 History Ferrous Sulfate [Iron] 1 tab PO DAILY 10/21/21 10/21/21 History Vit No.179/Iron/Folic 1 tab PO DAILY 10/21/21 10/21/21 History [ Tablet] Allergies Allergy/AdvReac Type Severity Reaction Status Date / Time No Known Allergies Allergy Verified 06/06/21 16:02 Exam Vital Signs Temp Pulse Resp BP Pulse Ox 10/22/21 00:22 97.5 F L 94 16 116/69 99 10/21/21 21:28 97.4 F L 103 H 18 127/84 10/21/21 20:13 97.4 F L 103 H 18 127/84 100 Intake and Output 10/21/21 10/22/21 10/22/21 22:59 06:59 14:59 Other: # Voids 2 2 Weight 92.533 kg This is a pleasant, comfortable appearing -[place] female who is visibly gravid. HEENT exam is unremarkable. Her breathing is unlabored and her heart is a regular rate and rhythm. The abdomen is gravid, soft and nontender with fundal height equal to gestational age. On pelvic examination the cervix is 3 cm dilated, 50% effaced and the vertex in the -3 station. Artificial rupture of membranes is undertaken and meconium-stained fluid is noted. heart tones are category 1 currently. Results Result Diagrams: 10/21/21 22:00 10/21/21 22:00 Abnormal Lab Results - Last 24 Hours (Table) 10/21/21 Range/Units 21:50 Urine Appearance Cloudy H (Clear) Ur Leukocyte Esterase Large H (Negative) Ur Squamous Epith Cells 8 H (0-4) /hpf Urine Bacteria Rare H (None) /hpf Urine Mucus Rare H (None) /hpf Assessment and Plan (1) 40 weeks gestation of Current Visit: Yes Status: Acute Code(s): Z3A.40 - 40 WEEKS GESTATION OF SNOMED Code(s): 60633454 (2) Meconium in amniotic fluid Current Visit: Yes Status: Acute Code(s): P96.83 - MECONIUM STAINING SNOMED Code(s): 9194493 (3) Category II heart rate tracing during maternal care in third trimester Current Visit: Yes Status: Acute Code(s): O36.8330 - MATERN CARE FOR ABNLT FETL HRT RATE OR RHYM, 3RD TRI, UNSP SNOMED Code(s): 289659798 Plan: 21-year-old 3 para 2 woman admitted at 40 and one sevenths weeks gestation for induction of labor secondary to category 2 heart tones during observation. I reviewed with the patient and her partner findings of meconium-stained in the amniotic fluid. Group B strep prophylactic antibiotics will be initiated due to group B strep status unknown. Her records have been requested. Blood type is AB+.
[2021-10-22] MEDS ORDERED: PENICILLIN G POTASSIUM 5,000,000 UNIT in DEXTROSE 5% IN WATER 100 ML IVPB STA ×2 (08:19)
[2021-10-22] MEDS ORDERED: OXYTOCIN 30 UNITS/500 ML NS 30 UNIT in SALINE 1 500ML.BAG IV SCH ×2 (08:30→13:15)
[2021-10-22 09:49] LABS: Hepatitis B Surface Antigen Nonreactive (Nonreactive)
[2021-10-22] MEDS ORDERED: BUTORPHANOL 1 MG/ML 1 ML VIAL IV PRN (10:26)
[2021-10-22] MEDS ORDERED: PENICILLIN G POTASSIUM 2,500,000 UNIT in DEXTROSE 5% IN WATER 100 ML IVPB SCH ×2 (13:00)
[2021-10-22] MEDS ORDERED: HYDROCORTISONE 2.5% RECTAL CREAM 30 GM TUBE RECTAL PRN (13:07)
[2021-10-22] MEDS ORDERED: BENZOCAINE/MENTHOL SPRAY 1 GM/SPRAY AEROSOL TOPICAL PRN (13:07)
[2021-10-22] MEDS ORDERED: ZOLPIDEM 5 MG TAB PO PRN (13:07)
[2021-10-22] MEDS ORDERED: diphenhydrAMINE 25 MG CAP PO PRN (13:07)
[2021-10-22] MEDS ORDERED: LANOLIN CREAM 5 GM TUBE TOPICAL PRN (13:07)
[2021-10-22] MEDS ORDERED: diphenhydrAMINE 50 MG CAP PO PRN (13:07)
[2021-10-22] MEDS ORDERED: diphenhydrAMINE 50 MG/ML 1 ML VIAL IVP PRN ×2 (13:07)
[2021-10-22] MEDS ORDERED: SIMETHICONE 80 MG CHEWABLE PO PRN (13:07)
--- NOTE | 2021-10-22 13:07 | P.PROBDLV ---
Vaginal Delivery Note - . Vaginal Delivery Note: Findings: Female in the vertex presentation with nuchal cord 1. Apgars of 8 at 1 minute and 9 at 5 minutes weighing 7 lbs. 10 oz. Intact perineum. Intact, three-vessel cord placenta. Delivery summary: This is a 21-year-old 3 para 2 woman who presented at 40 weeks gestation with complaints of rupture of membranes on 10/21/2021. Rupture of membranes and labor were ruled out however she had a category 2 heart rate tracing therefore was admitted for observation. Her had been managed in [place] and she recently moved to the area and had not seen a physician for approximately 3-4 weeks. She continued to have category 2 heart rate tracing with overall moderate variability episodes of late appearing heart rate decelerations through the night here the decision was made to induce labor this morning. Artificial rupture of membranes is undertaken at approximate 8 AM and meconium-stained fluid was noted. The patient received underwent a Pitocin induction of labor with group B strep prophylactic antibiotics secondary to group B strep status unknown. She received Stadol 1. She was approximate 7 cm at 11 AM. Repeat evaluation at approximately 1210 she remained 7 cm dilated with Formation. Maternal position changes were then undertaken. At approximately 1255 patient called out complaining of pressure and when the RN was in the room the head was spontaneously delivering. RN assisted the remainder of the delivery. A nuchal cord 1 was reduced. Apgars were 8 at 1 minute and 9 at 5 minutes. I was notified and arrived in the room approximate 5 minutes later. was vigorous on the maternal abdomen. The cord had been clamped and cut. With gentle fundal pressure the intact, three- vessel cord placenta was expelled without difficulty. The uterus was massaged and was firm below the level of the umbilicus. The vagina was inspected and no lacerations were noted. EBL appeared minimal. Both mother and infant were doing well post delivery in the room.
[2021-10-22] MEDS: IBUPROFEN 600 MG TAB PO PRN ×2 (13:32→22:06)
[2021-10-22 18:43] LABS: HIV 2 AB Non-Reactive (Non-Reactive); HIV AB P24 Non-Reactive (Non-Reactive); HIV P24 AG Non-Reactive (Non-Reactive)
[2021-10-22] MEDS: SENNOSIDES-DOCUSATE SODIUM 1 EACH TAB PO SCH (19:40)
[2021-10-22] MEDS: ACETAMINOPHEN TAB 325 MG TAB PO PRN (19:40)
[2021-10-23] MEDS: SENNOSIDES-DOCUSATE SODIUM 1 EACH TAB PO SCH ×2 (07:46→20:21)
[2021-10-23] MEDS: IBUPROFEN 600 MG TAB PO PRN ×2 (07:46→20:22)
[2021-10-23 07:55] LABS: Basophils # (A) 0.1 k/uL (0-0.2); Basophils % (A) 0 %; Eosinophils # (A) 0.1 k/uL (0-0.7); Eosinophils % (A) 1 %; HGB 11.2 gm/dL (11.4-16.0); Hypochromasia Slight; Lymphocytes # (A) 2.8 k/uL (1.0-4.8); Lymphocytes % (A) 23 %; MCH 25.8 pg (25.0-35.0); MCHC 32.1 g/dL (31.0-37.0); MCV 80.3 fL (80.0-100.0); Mean Platelet Volume 8.6; Monocytes # (A) 0.7 k/uL (0-1.0); Monocytes % (A) 6 %; Neutrophils # (A) 8.2 k/uL (1.3-7.7); Neutrophils % (A) 68 %; Platelet Count 156 k/uL (150-450); RBC 4.36 m/uL (3.80-5.40); RDW 14.6 % (11.5-15.5)
--- NOTE | 2021-10-23 12:35 | P.DS ---
Providers Date of admission: 10/22/21 11:14 Expected date of discharge: 10/23/21 Attending physician: Evelin Barney Primary care physician: Stated None - Discharge Diagnosis(es) (1) 40 weeks gestation of Current Visit: Yes Status: Acute (2) Meconium in amniotic fluid Current Visit: Yes Status: Acute (3) Category II heart rate tracing during maternal care in third trimester Current Visit: Yes Status: Acute (4) Perineal laceration with delivery, first degree Current Visit: Yes Status: Acute (5) Normal spontaneous vaginal delivery Current Visit: Yes Status: Acute Hospital Course: This is a 21-year-old 3 now para 3 woman who is admitted at 40 weeks g estation for rule out labor. She was not in labor however during her observation. She was noted to have category 2 heart tones with intermittent episodes of late heart rate did decelerations and an otherwise reassuring tracing with good variability. She was observed throughout the night with ongoing category 2 heart tones therefore decision was made to proceed with admission and induction of labor. With artificial rupture of membrane she was noted to have meconium-stained fluid. She underwent Pitocin induction of labor per protocol. She received Stadol 1. She progressed to 7 cm dilated and then had a very precipitous unintended vaginal delivery of a liveborn female infant with a nuchal cord 1. I was in attendance immediately following delivery and expressed an intact placenta. She had a first-degree laceration which was repaired in the usual fashion. Apgars were 8 at 1 minute and 9 at 5 minutes and weight was 7 lbs. 10 oz. Please see the delivery summary for details. The patient's course was unremarkable. By day #1 she was ambulating and voiding without difficulty. Her vital signs were stable. Her labs were all within normal limits. She was breast-feeding successfully. She was therefore discharged home with routine instructions for care and follow-up. Procedures: Normal spontaneous vaginal delivery Patient Condition at Discharge: Good Plan - Discharge Summary New Discharge Prescriptions: No Action Vit No.179/Iron/Folic [ Tablet] 1 tab PO DAILY Ferrous Sulfate [Iron] 1 tab PO DAILY Aspirin 1 tab PO DAILY Discharge Medication List Aspirin 1 tab PO DAILY 10/21/21 [History] Ferrous Sulfate [Iron] 1 tab PO DAILY 10/21/21 [History] Vit No.179/Iron/Folic [ Tablet] 1 tab PO DAILY 10/21/21 [History] Follow up Appointment(s)/Referral(s): Evelin Barney MD [STAFF PHYSICIAN] - 6 Weeks Activity/Diet/Wound Care/Special Instructions: Follow-up in the office in 6 weeks . Call with any concerning signs or symptoms including heavy vaginal bleeding, severe abdominal pain, fever greater than 101, swelling or redness of the lower extremities, foul vaginal discharge, or signs of depression. Nothing in the vagina for 6 weeks after delivery, specifically no intercourse. Discharge Disposition: HOME SELF-CARE
[2021-10-23 13:20] LABS: C. trachomatis,PCR Positive (Neg,Equiv); Chlamydia trachomatis Source Urine; N. gonorrhoeae,PCR Negative (Neg,Equiv); Neisseria Source Urine
[2021-10-23] MEDS: ACETAMINOPHEN TAB 325 MG TAB PO PRN (23:49)
[2021-10-24] MEDS: IBUPROFEN 600 MG TAB PO PRN ×2 (04:05→16:06)
[2021-10-24 08:57] VITALS: RESP 16
[2021-10-24] MEDS: SENNOSIDES-DOCUSATE SODIUM 1 EACH TAB PO SCH (08:59)
[2021-10-24 16:29] VITALS: BP 102/63; PULSE 73; TEMP 98.3
== END 2021-10-24 18:30 | disposition home or self-care (01) | DRG 806 ==
LOC: FBPOP 19:52 → 4FBP 21:24 → OBSVTOIN 10-22 11:14
PROVIDERS: ADMIT Obstetrics & Gynecology; ATTEND Obstetrics & Gynecology
PROC: 10E0XZZ Delivery of Products of Conception, External Approach (ICD-10-PCS; principal; 2021-10-22)
PROC: 0HQ9XZZ Repair Perineum Skin, External Approach (ICD-10-PCS; 2021-10-22)
PROC: 10907ZC Drainage of Amniotic Fluid, Therapeutic from Products of Conception, Via Natural or Artificial Opening (ICD-10-PCS; 2021-10-22)
PROC: 4A0HXCZ Measurement of Products of Conception, Cardiac Rate, External Approach (ICD-10-PCS; 2021-10-22)
PROC: 3E033VJ Introduction of Other Hormone into Peripheral Vein, Percutaneous Approach (ICD-10-PCS; 2021-10-22)
DX: O76 Abnormality in fetal heart rate and rhythm complicating labor and delivery (principal); O10.92 Unspecified pre-existing hypertension complicating childbirth; Z37.0 Single live birth; O69.81X0 Labor and delivery complicated by cord around neck, without compression, not applicable or unspecified; O70.0 First degree perineal laceration during delivery; O77.0 Labor and delivery complicated by meconium in amniotic fluid; Z3A.40 40 weeks gestation of pregnancy; Z79.82 Long term (current) use of aspirin; Z87.59 Personal history of other complications of pregnancy, childbirth and the puerperium
CPT/HCPCS: 59025; 80306; 81001; 82947; 84112; 85025; 86762; 86780; 86850; 86900; 86901; 87081; 87340; 87390; 87491; 87591; 88307; 99213

== ENCOUNTER 2022-01-03 15:31 | Emergency (ER) | payer OTHER ==
[2022-01-03 15:42] VITALS: BP 114/67; PULSE 111; RESP 18; TEMP 98.4
[2022-01-03] MEDS ORDERED: DIPH,PERTUS(ACELL)TETVAC-LF 0.5 ML VIAL IM ONE (15:52)
[2022-01-03] MEDS ORDERED: IBUPROFEN 800 MG TAB PO STA (15:52)
[2022-01-03] MEDS ORDERED: ORPHENADRINE 30 MG/ML 2 ML VIAL IM STA (15:52)
[2022-01-03] MEDS ORDERED: BACITRACIN OINT 1 EACH PACKET TOPICAL ONE (15:53)
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
--- NOTE | 2022-01-03 16:12 | XR ---
EXAMINATION TYPE: XR chest 2V DATE OF EXAM: 01/03/2022 COMPARISON: NONE HISTORY: Chest pain TECHNIQUE: Frontal and lateral views of the chest are obtained. FINDINGS: There is no focal air space opacity. No evidence for pneumothorax. No pleural effusion. The cardiac silhouette size is within normal limits. The osseous structures are grossly intact. IMPRESSION: 1. No acute cardiopulmonary process.
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
== END 2022-01-03 16:51 | disposition home or self-care (01) ==
LOC: EC 15:31
DX: S00.81XA Abrasion of other part of head, initial encounter (principal); Z23 Encounter for immunization; I10 Essential (primary) hypertension; F17.290 Nicotine dependence, other tobacco product, uncomplicated; Z79.82 Long term (current) use of aspirin; V49.50XA Passenger injured in collision with unspecified motor vehicles in traffic accident, initial encounter
CPT/HCPCS: 71046; 72125; 70450; 90715; 99285; 90471; 96372; J2360

== ENCOUNTER 2023-09-21 10:06 | Emergency (ER) | payer OTHER ==
--- NOTE | 2023-09-21 10:24 | ED ---
Abdominal Pain HPI - General Chief Complaint: Abdominal Pain Stated Complaint: Abdominal Pain Time Seen by Provider: 09/21/23 10:20 Source: patient, RN notes reviewed Mode of arrival: ambulatory Limitations: no limitations - History of Present Illness Initial Comments: This is a 23-year-old female with no significant past medical history who presents to the emergency department chief complaint of 3 days of intermittent pelvic and abdominal pain. Patient has a history of uterine fibroids. States that she has irregular menstrual cycles and has a Nexplanon in place. She endorses dysuria, increase in urinary frequency and urgency, and bladder spasms where she took Azo [id number] about a week ago. She has been experiencing left-sided flank pain the last few days as well. She denies fevers, nausea, vomiting, vaginal discharge, previous abdominal surgeries, hematochezia. - Related Data Home Medications Medication Instructions Recorded Confirmed Aspirin 1 tab PO DAILY 10/21/21 10/21/21 Ferrous Sulfate [Iron] 1 tab PO DAILY 10/21/21 10/21/21 Vit No.179/Iron/Folic 1 tab PO DAILY 10/21/21 10/21/21 [ Tablet] Previous Rx's Medication Instructions Recorded Cyclobenzaprine [Flexeril] 10 mg PO TID PRN #15 tab 01/03/22 Ibuprofen [Motrin] 800 mg PO Q6HR #30 tab 01/03/22 Nitrofurantoin Monohyd/M-Cryst 100 mg PO Q12HR #14 cap 09/21/23 [Macrobid] Allergies Allergy/AdvReac Type Severity Reaction Status Date / Time No Known Allergies Allergy Verified 01/03/22 15:42 Review of Systems ROS Statement: Those systems with pertinent positive or pertinent negative responses have been documented in the HPI. ROS Other: All systems not noted in ROS Statement are negative. Past Medical History Past Medical History: Hypertension Additional Past Medical History / Comment(s): uterine fibroids History of Any Multi-Drug Resistant Organisms: None Reported Past Surgical History: No Surgical Hx Reported Past Anesthesia/Blood Transfusion Reactions: No Reported Reaction Past Psychological History: No Psychological Hx Reported Smoking Status: Vaper Past Alcohol Use History: Occasional Past Drug Use History: None Reported General Exam - General Exam Comments Initial Comments: Visual Physical Exam Vital signs reviewed General: Well-appearing, nontoxic, no acute distress. Head: Normocephalic, atraumatic Eyes: PERRLA, EOMI ENT: Airway patent Chest: Nonlabored breathing Skin: No visual rash, normal skin tone Neuro: Alert and oriented 3 Musculoskeletal: No gross abnormalities Limitations: no limitations General appearance: alert, in no apparent distress Head exam: Present: atraumatic, normocephalic, normal inspection Eye exam: Present: normal appearance, PERRL, EOMI. Absent: scleral icterus, conjunctival injection, periorbital swelling ENT exam: Present: normal exam, mucous membranes moist Neck exam: Present: normal inspection. Absent: tenderness, meningismus, lymphad enopathy Respiratory exam: Present: normal lung sounds bilaterally. Absent: respiratory distress, wheezes, rales, rhonchi, stridor Cardiovascular Exam: Present: regular rate, normal rhythm, normal heart sounds. Absent: systolic murmur, diastolic murmur, rubs, gallop, clicks GI/Abdominal exam: Present: soft, tenderness (left lower quadrant and pelvis), normal bowel sounds. Absent: guarding, rebound, rigid External exam: Present: normal external exam. Absent: erythema, swelling Speculum exam: Present: normal speculum exam. Absent: erythema, vaginal discharge By manual exam: Present: normal by manual exam. Absent: cervical motion tenderness Extremities exam: Present: normal inspection, full ROM, normal capillary refill. Absent: tenderness, pedal edema, joint swelling, calf tenderness Back exam: Present: normal inspection, full ROM, CVA tenderness (L) Neurological exam: Present: alert, oriented X3, CN II-XII intact Psychiatric exam: Present: normal affect, normal mood Skin exam: Present: warm, dry, intact, normal color. Absent: rash Course Vital Signs 09/21/23 09/21/23 10:10 13:06 Temperature 98.2 F 98 F Pulse Rate 87 69 Respiratory 18 18 Rate Blood Pressure 127/80 125/77 O2 Sat by Pulse 98 99 Oximetry Medical Decision Making - Medical Decision Making I completed the quick note portion of this chart signed Alejandra Clements PA-C Was pt. sent in by a medical professional or institution ([facility], [facility], urgent care, hospital, or senior care...) When possible be specific @ -No Did you speak to anyone other than the patient for history (EMS, parent, family, police, friend...)? What history was obtained from this source @ -No Did you review nursing and triage notes (agree or disagree)? Why? @ -I reviewed and agree with nursing and triage notes Were old charts reviewed (outside hosp., previous admission, EMS record, old EKG, old radiological studies, urgent care reports/EKG's, senior care records)? Report findings @ -No old charts were reviewed Differential Diagnosis (chest pain, altered mental status, abdominal pain women, abdominal pain men, vaginal bleeding, weakness, fever, dyspnea, syncope, headache, dizziness, GI bleed, back pain, seizure, CVA, palpatations, mental health, musculoskeletal)? @ -Differential Abdominal Pain Women: Appendicitis, Cholecystitis, diverticulosis, ischemic bowel, pancreatitis, hepatitis, UTI, gastroenteritis, AAA, incarcerated hernia, bowel obstruction, constipation, inflammatory bowel, hepatitis, peptic ulcer disease, splenic inf arction, perforated viscus, vulvitis, ovarian torsion, PID, kidney stone, placenta abruption, this is not meant to be an all-inclusive list EKG interpreted by me (3pts min.). @ -None X-rays interpreted by me (1pt min.). @ -None done CT interpreted by me (1pt min.). @ -None done U/S interpreted by me (1pt. min.). @ -Transvaginal ultrasound no acute process, ovaries with bilateral blood flow, uterus within normal limits. What testing was considered but not performed or refused? (CT, X-rays, U/S, labs)? Why? @ - What meds were considered but not given or refused? Why? @ -Pain medication was offered but deferred by the patient due to her pain not requiring medication at this time. Did you discuss the management of the patient with other professionals (professionals i.e. , PA, [facility], lab, RT, psych nurse, licensed social worker, drug safety associate, teacher, forest fire management officer, clinical case manager)? Give summary @ -No Was smoking cessation discussed for >3mins.? @ -No Was critical care preformed (if so, how long)? @ -No Were there social determinants of health that impacted care today? How? (Homelessness, low income, unemployed, alcoholism, drug addiction, transportation, low edu. Level, literacy, decrease access to med. care, residential, rehab)? @ -No Was there de-escalation of care discussed even if they declined (Discuss DNR or withdrawal of care, Hospice)? DNR status @ -No What co-morbidities impacted this encounter? (DM, HTN, Smoking, COPD, CAD, Cancer, CVA, ARF, Chemo, Hep., AIDS, mental health diagnosis, sleep apnea, morbid obesity)? @ -None Was patient admitted / discharged? Hospital course, mention meds given and route, prescriptions, significant lab abnormalities, going to OR and other pertinent info. @ -23-year-old female with abdominal and pelvic pain. Lamination patient is noted to have mild suprapubic tenderness on palpation with associated left-sided flank pain. At this time patient will be evaluated via labs and urinalysis. Patient was offered pain medication but declined at this time. CBC, CMP and coagulation profile unremarkable. Urinalysis reveals trace leukocyte esterase a nd many bacteria. initial urinalysis reveals a large quantity of squamous epithelial cells therefore repeat urine sent to rule out infection. Repeat urinalysis remarkable for a cloudy appearance, trace leukocyte esterase, and occasional bacteria. Patient will be sent a prescription for Macrobid to treat a acute cystitis. Recommend the patient follows with her primary care provider within this calendar week for further evaluation. Vital stable. All questions answered at bedside. Strict return parameters discussed with the patient. Case discussed with Dr. Pineda Undiagnosed new problem with uncertain prognosis? @ -No Drug Therapy requiring intensive monitoring for toxicity (Heparin, Nitro, Insulin, Cardizem)? @ -No Were any procedures done? @ -No Diagnosis/symptom? @ -Acute cystitis, abdominal pain, pelvic pain Acute, or Chronic, or Acute on Chronic? @ -Acute Uncomplicated (without systemic symptoms) or Complicated (systemic symptoms)? @ -Uncomplicated Side effects of treatment? @ -No Exacerbation, Progression, or Severe Exacerbation? @ -No Poses a threat to life or bodily function? How? (Chest pain, [place], [place], pneumonia, PE, COPD, DKA, ARF, appy, cholecystitis, CVA, Diverticulitis, Homicidal, Suicidal, threat to staff... and all critical care pts) @ -No - Lab Data Result diagrams: 09/21/23 10:58 09/21/23 10:58 Lab Results 09/21/23 09/21/23 09/21/23 Range/Units 10:15 10:15 10:58 WBC 5.9 (3.8-10.6) k/uL RBC 5.08 (3.80-5.40) m/uL Hgb 12.1 (11.4-16.0) gm/dL Hct 40.4 (34.0-46.0) % MCV 79.4 L (80.0-100.0) fL MCH 23.8 L (25.0-35.0) pg MCHC 30.0 L (31.0-37.0) g/dL RDW 14.4 (11.5-15.5) % Plt Count 210 (150-450) k/uL MPV 8.0 Neutrophils % 45 % Lymphocytes % 45 % Monocytes % 6 % Eosinophils % 2 % Basophils % 1 % Neutrophils # 2.6 (1.3-7.7) k/uL Lymphocytes # 2.6 (1.0-4.8) k/uL Monocytes # 0.3 (0-1.0) k/uL Eosinophils # 0.1 (0-0.7) k/uL Basophils # 0.0 (0-0.2) k/uL Hypochromasia Slight PT (10.0-12.5) sec INR (<1.2) APTT (22.0-30.0) sec Sodium (137-145) mmol/L Potassium (3.5-5.1) mmol/L Chloride (98-107) mmol/L Carbon Dioxide (22-30) mmol/L Anion Gap mmol/L BUN (7-17) mg/dL Creatinine (0.52-1.04) mg/dL Est GFR (CKD-EPI)AfAm (>60 ml/min/1.73 sqM) Est GFR (CKD-EPI)NonAf (>60 ml/min/1.73 sqM) Glucose (74-99) mg/dL Calcium (8.4-10.2) mg/dL Total Bilirubin (0.2-1.3) mg/dL AST (14-36) U/L ALT (4-34) U/L Alkaline Phosphatase (38-126) U/L Total Protein (6.3-8.2) g/dL Albumin (3.5-5.0) g/dL Lipase (23-300) U/L Urine Color Yellow Urine Appearance Cloudy H (Clear) Urine pH 6.5 (5.0-8.0) Ur Specific [place] 1.019 (1.001-1.035) Urine Protein Negative (Negative) Urine Glucose (UA) Negative (Negative) Urine Ketones Negative (Negative) Urine Blood Negative (Negative) Urine Nitrite Negative (Negative) Urine Bilirubin Negative (Negative) Urine Urobilinogen 3.0 (<2.0) mg/dL Ur Leukocyte Esterase Trace H (Negative) Urine RBC 2 (0-5) /hpf Urine WBC 3 (0-5) /hpf Ur Squamous Epith Cells 22 H (0-4) /hpf Urine Bacteria Many H (None) /hpf Urine Mucus Rare H (None) /hpf Urine HCG, Qual Not Detected (Not Detectd) 09/21/23 09/21/23 09/21/23 Range/Units 10:58 10:58 12:21 WBC (3.8-10.6) k/uL RBC (3.80-5.40) m/uL Hgb (11.4-16.0) gm/dL Hct (34.0-46.0) % MCV (80.0-100.0) fL MCH (25.0-35.0) pg MCHC (31.0-37.0) g/dL RDW (11.5-15.5) % Plt Count (150-450) k/uL MPV Neutrophils % % Lymphocytes % % Monocytes % % Eosinophils % % Basophils % % Neutrophils # (1.3-7.7) k/uL Lymphocytes # (1.0-4.8) k/uL Monocytes # (0-1.0) k/uL Eosinophils # (0-0.7) k/uL Basophils # (0-0.2) k/uL Hypochromasia PT 11.2 (10.0-12.5) sec INR 1.0 (<1.2) APTT 25.6 (22.0-30.0) sec Sodium 139 (137-145) mmol/L Potassium 3.9 (3.5-5.1) mmol/L Chloride 108 H (98-107) mmol/L Carbon Dioxide 24 (22-30) mmol/L Anion Gap 7 mmol/L BUN 11 (7-17) mg/dL Creatinine 0.76 (0.52-1.04) mg/dL Est GFR (CKD-EPI)AfAm >90 (>60 ml/min/1.73 sqM) Est GFR (CKD-EPI)NonAf >90 (>60 ml/min/1.73 sqM) Glucose 94 (74-99) mg/dL Calcium 9.2 (8.4-10.2) mg/dL Total Bilirubin 1.1 (0.2-1.3) mg/dL AST 24 (14-36) U/L ALT 12 (4-34) U/L Alkaline Phosphatase 84 (38-126) U/L Total Protein 7.9 (6.3-8.2) g/dL Albumin 4.5 (3.5-5.0) g/dL Lipase 97 (23-300) U/L Urine Color Light Yellow Urine Appearance Cloudy H (Clear) Urine pH 6.5 (5.0-8.0) Ur Specific [place] 1.016 (1.001-1.035) Urine Protein Negative (Negative) Urine Glucose (UA) Negative (Negative) Urine Ketones Negative (Negative) Urine Blood Negative (Negative) Urine Nitrite Negative (Negative) Urine Bilirubin Negative (Negative) Urine Urobilinogen 2.0 (<2.0) mg/dL Ur Leukocyte Esterase Trace H (Negative) Urine RBC <1 (0-5) /hpf Urine WBC 2 (0-5) /hpf Ur Squamous Epith Cells 12 H (0-4) /hpf Urine Bacteria Occasional H (None) /hpf Urine Mucus Rare H (None) /hpf Urine HCG, Qual (Not Detectd) Disposition Clinical Impression: Pelvic pain, Abdominal pain, Cystitis Disposition: HOME SELF-CARE Condition: Good Instructions (If sedation given, give patient instructions): Abdominal Pain (ED) Additional Instructions: Return to the emergency department if symptoms worsen or not improve. Follow-up with your primary care provider in the next 3 days for further evaluation. Prescriptions: Nitrofurantoin Monohyd/M-Cryst [Macrobid] 100 mg PO Q12HR #14 cap Is patient prescribed a controlled substance at d/c from ED?: No Referrals: None,Stated [Primary Care Provider] - 1-2 days Time of Disposition: 12:39
[2023-09-21 11:08] LABS: Appearance,Urine Cloudy (Clear); Bacteria,Urine Many /hpf; Bilirubin,Urine Negative (Negative); Blood,Urine Negative (Negative); Color,Urine Yellow; Glucose,Urine (UA) Negative (Negative); Ketones,Urine Negative (Negative); Leukocyte Esterase,Urine Trace (Negative); Mucus,Urine Rare /hpf; Nitrite,Urine Negative (Negative); PH, Urine 6.5 (5.0-8.0); Protein,Urine Negative (Negative); RBC,Urine 2 /hpf (0-5); Specific Gravity,Urine 1.019 (1.001-1.035); Squamous Epithelial Cell,Urine 22 /hpf (0-4); WBC,Urine 3 /hpf (0-5)
[2023-09-21 11:16] LABS: Basophils % (A) 1 %; Eosinophils # (A) 0.1 k/uL (0-0.7); Eosinophils % (A) 2 %; HCT 40.4 % (34.0-46.0); HGB 12.1 gm/dL (11.4-16.0); Hypochromasia Slight; Lymphocytes # (A) 2.6 k/uL (1.0-4.8); Lymphocytes % (A) 45 %; MCH 23.8 pg (25.0-35.0); MCV 79.4 fL (80.0-100.0); Monocytes # (A) 0.3 k/uL (0-1.0); Monocytes % (A) 6 %; Neutrophils # (A) 2.6 k/uL (1.3-7.7); Neutrophils % (A) 45 %; Platelet Count 210 k/uL (150-450); RBC 5.08 m/uL (3.80-5.40); RDW 14.4 % (11.5-15.5); WBC 5.9 k/uL (3.8-10.6)
[2023-09-21 11:23] LABS: Partial Thromboplastin Time 25.6 sec (22.0-30.0); Prothrombin Time 11.2 sec (10.0-12.5)
[2023-09-21 11:26] LABS: ALT 12 U/L (4-34); AST 24 U/L (14-36); African American GFR (CKD) >90 (>60 ml/min/1.73 sqM); Albumin 4.5 g/dL (3.5-5.0); Alkaline Phosphatase 84 U/L (38-126); Anion Gap 7 mmol/L; Blood Urea Nitrogen 11 mg/dL (7-17); Calcium 9.2 mg/dL (8.4-10.2); Carbon Dioxide 24 mmol/L (22-30); Chloride 108 mmol/L (98-107); Glucose 94 mg/dL (74-99); Lipase 97 U/L (23-300); Non-African American GFR(CKD) >90 (>60 ml/min/1.73 sqM); Potassium 3.9 mmol/L (3.5-5.1); Sodium 139 mmol/L (137-145); Total Bilirubin 1.1 mg/dL (0.2-1.3); Total Protein 7.9 g/dL (6.3-8.2)
--- NOTE | 2023-09-21 12:30 | US ---
EXAMINATION TYPE: US transvaginal DATE OF EXAM: 09/21/2023 COMPARISON: NONE CLINICAL INDICATION: Female, 23 years old with history of pelvic pain, hx of fibroids; pelvic pain on going for 4 months, , irregular cycles, only 1 cycler per year TECHNIQUE: TV. Transvaginal sonographic images Date of LMP: unknown EXAM MEASUREMENTS: Uterus: 9.0 x 5.4 x 3.9 cm Endometrial Stripe: 0.2 cm Right Ovary: 2.9 x 1.7 x 1.8 cm Left Ovary: 2.1 x 1.8 x 1.7 cm 1. Uterus: Anteverted wnl 2. Endometrium: wnl 3. Right Ovary: dominate follicle seen = 1.2 x 1.0 x 1.0cm 4. Left Ovary: follicles seen Spectral, color and waveform doppler imaging shows good arterial and venous flow within the ovaries ; there is no evidence for ovarian torsion. 5. Bilateral Adnexa: wnl 6. Posterior cul-de-sac: wnl IMPRESSION: * No evidence for acute process. * Endometrium within normal limits for thickness. * Appropriate arterial and venous waveforms to the ovaries.
[2023-09-21 12:46] LABS: Appearance,Urine Cloudy (Clear); Bacteria,Urine Occasional /hpf; Bilirubin,Urine Negative (Negative); Blood,Urine Negative (Negative); Color,Urine Light Yellow; Glucose,Urine (UA) Negative (Negative); Ketones,Urine Negative (Negative); Leukocyte Esterase,Urine Trace (Negative); Mucus,Urine Rare /hpf; Nitrite,Urine Negative (Negative); PH, Urine 6.5 (5.0-8.0); Protein,Urine Negative (Negative); RBC,Urine <1 /hpf (0-5); Specific Gravity,Urine 1.016 (1.001-1.035); Squamous Epithelial Cell,Urine 12 /hpf (0-4); WBC,Urine 2 /hpf (0-5)
[2023-09-21 13:25] VITALS: BP 125/77; PULSE 69; RESP 18; TEMP 98
== END 2023-09-21 13:06 | disposition home or self-care (01) ==
LOC: EC 10:06
DX: N30.90 Cystitis, unspecified without hematuria (principal); F17.290 Nicotine dependence, other tobacco product, uncomplicated
CPT/HCPCS: 36415; 76830; 80053; 81001; 81025; 83690; 85025; 85610; 85730; 93975; 99284

== ENCOUNTER 2024-09-28 15:02 | Emergency (ER) | payer OTHER ==
[2024-09-28 15:19] VITALS: BP 117/78; PULSE 93; RESP 16; TEMP 98.3
[2024-09-28 15:40] LABS: Basophils # (A) 0.04 10*3/uL (0.00-0.10); Basophils % (A) 0.4 %; Eosinophils # (A) 0.07 10*3/uL (0.04-0.35); Eosinophils % (A) 0.6 %; HCT 31.9 % (37.2-46.3); HGB 10.6 g/dL (12.0-15.0); Lymphocytes # (A) 2.52 10*3/uL (0.90-5.00); Lymphocytes % (A) 22.4 %; MCH 24.9 pg (27.0-32.0); MCHC 33.2 g/dL (32.0-37.0); MCV 75.1 fL (80.0-97.0); Mean Platelet Volume 12.1 fL (9.5-12.2); Monocytes # (A) 0.73 10*3/uL (0.20-1.00); Monocytes % (A) 6.5 %; Neutrophils # (A) 7.85 10*3/uL (1.80-7.70); Neutrophils % (A) 69.7 %; Platelet Count 224 10*3/uL (140-440); RBC 4.25 10*6/uL (4.10-5.20); RDW 14.6 % (11.5-14.5); WBC 11.25 10*3/uL (4.50-10.00)
--- NOTE | 2024-09-28 15:50 | ED ---
General Adult HPI - General Chief complaint: Abdominal Pain Stated complaint: Abd pain Time Seen by Provider: 09/28/24 15:20 Source: patient, RN notes reviewed Mode of arrival: ambulatory Limitations: no limitations - History of Present Illness Initial comments: This is a 24-year-old female, [id number], with no reported medical conditions presenting to the emergency room with right lower abdominal pain. Patient states that she had at home positive test a few weeks ago and her last menstrual cycle was in the end of June. Patient states that she started having lower abdominal pain yesterday that is intensified today. Patient denies vagina l bleeding, urinary complaints, dysuria, nausea, vomiting. - Related Data Home Medications Medication Instructions Recorded Confirmed Aspirin 1 tab PO DAILY 10/21/21 10/21/21 Ferrous Sulfate [Iron] 1 tab PO DAILY 10/21/21 10/21/21 Vit No.179/Iron/Folic 1 tab PO DAILY 10/21/21 10/21/21 [ Tablet] Previous Rx's Medication Instructions Recorded Cyclobenzaprine [Flexeril] 10 mg PO TID PRN #15 tab 01/03/22 Ibuprofen [Motrin] 800 mg PO Q6HR #30 tab 01/03/22 Nitrofurantoin Monohyd/M-Cryst 100 mg PO Q12HR #14 cap 09/21/23 [Macrobid] Allergies Allergy/AdvReac Type Severity Reaction Status Date / Time No Known Allergies Allergy Verified 01/03/22 15:42 Review of Systems ROS Statement: Those systems with pertinent positive or pertinent negative responses have been documented in the HPI. ROS Other: All systems not noted in ROS Statement are negative. Past Medical History Past Medical History: Hypertension Additional Past Medical History / Comment(s): uterine fibroids History of Any Multi-Drug Resistant Organisms: None Reported Past Surgical History: No Surgical Hx Reported Past Anesthesia/Blood Transfusion Reactions: No Reported Reaction Past Psychological History: No Psychological Hx Reported Smoking Status: Vaper Past Alcohol Use History: Occasional Past Drug Use History: None Reported General Exam Limitations: no limitations General appearance: alert, in no apparent distress ENT exam: Present: normal exam, mucous membranes moist Neck exam: Present: normal inspection. Absent: tenderness, meningismus, lymphadenopathy Respiratory exam: Present: normal lung sounds bilaterally. Absent: respiratory distress, wheezes, rales, rhonchi, stridor Cardiovascular Exam: Present: regular rate, normal rhythm, normal heart sounds. Absent: systolic murmur, diastolic murmur, rubs, gallop, clicks GI/Abdominal exam: Present: soft, tenderness (right lower abdomen), normal bowel sounds. Absent: distended, guarding, rebound, rigid Extremities exam: Present: normal inspection, full ROM, normal capillary refill. Absent: tenderness, pedal edema, joint swelling, calf tenderness Back exam: Present: normal inspection. Absent: CVA tenderness (R), CVA tenderness (L) Course Vital Signs 09/28/24 15:15 Temperature 98.3 F Pulse Rate 93 Respiratory 16 Rate Blood Pressure 117/78 O2 Sat by Pulse 98 Oximetry Medical Decision Making - Medical Decision Making Was pt. sent in by a medical professional or institution (MILLICENT Holt, PASTRYCOOK'S ASSISTANT, urgent care, hospital, or correction...) When possible be specific @ -No Did you speak to anyone other than the patient for history (EMS, parent, family, police, friend...)? What history was obtained from this source @ -No Did you review nursing and triage notes (agree or disagree)? Why? @ -I reviewed and agree with nursing and triage notes Were old charts reviewed (outside hosp., previous admission, EMS record, old EKG, old radiological studies, urgent care reports/EKG's, correction records)? Report findings @ -No old charts were reviewed Differential Diagnosis (chest pain, altered mental status, abdominal pain women, abdominal pain men, vaginal bleeding, weakness, fever, dyspnea, syncope, headache, dizziness, GI bleed, back pain, seizure, CVA, palpatations, mental health, musculoskeletal)? @ -Differential Abdominal Pain Women: Appendicitis, Cholecystitis, diverticulosis, ischemic bowel, pancreatitis, hepatitis, UTI, gastroenteritis, AAA, incarcerated hernia, bowel obstruction, constipation, inflammatory bowel, hepatitis, peptic ulcer disease, splenic infarction, perforated viscus, vulvitis, ovarian torsion, PID, kidney stone, placenta abruption, this is not meant to be an all-inclusive list EKG interpreted by me (3pts min.). @ -None X-rays interpreted by me (1pt min.). @ -None done CT interpreted by me (1pt min.). @ -None done U/S interpreted by me (1pt. min.). @ - ultrasound completed reveals a single live intrauterine gestation with a age of 17 weeks 0 days with a heart rate of 149 What testing was considered but not performed or refused? (CT, X-rays, U/S, labs)? Why? @ -None What meds were considered but not given or refused? Why? @ -None Did you discuss the management of the patient with other professionals (professionals i.e. , PA, PASTRYCOOK'S ASSISTANT, lab, RT, psych nurse, social media director, shell plater, teacher, production officer, case maker)? Give summary @ -No Was smoking cessation discussed for >3mins.? @ -No Was critical care preformed (if so, how long)? @ -No Were there social determinants of health that impacted care today? How? (Homelessness, low income, unemployed, alcoholism, drug addiction, transp ortation, low edu. Level, literacy, decrease access to med. care, snf, rehab)? @ -No Was there de-escalation of care discussed even if they declined (Discuss DNR or withdrawal of care, Hospice)? DNR status @ -No What co-morbidities impacted this encounter? (DM, HTN, Smoking, COPD, CAD, Cancer, CVA, ARF, Chemo, Hep., AIDS, mental health diagnosis, sleep apnea, morbid obesity)? @ -None Was patient admitted / discharged? Hospital course, mention meds given and route, prescriptions, significant lab abnormalities, going to OR and other pertinent info. @ -Discharge. 24-year-old female presents emergency room with complaints of right lower abdominal pain. Overall patient is well-appearing and initial vitals are stable. Patient has mild tenderness to the right lower abdomen. Patient CBC and CMP are unremarkable. Patient's urine is potentially concerning for infection with white cells and bacteria that will be treated with Macrobid for asymptomatic bacteriuria during . Patient's ultrasound reveals an intrauterine at a calculated gestational age of 17 weeks 0 days. Patient is instructed to initiate taking a vitamin is provided with OB follow-up. Return parameters discussed. Case is discussed with Dr. Arguelles Undiagnosed new problem with uncertain prognosis? @ -No Drug Therapy requiring intensive monitoring for toxicity (Heparin, Nitro, Insulin, Cardizem)? @ -No Were any procedures done? @ -No Diagnosis/symptom? @ -17 weeks gestation Acute, or Chronic, or Acute on Chronic? @ -Acute Uncomplicated (without systemic symptoms) or Complicated (systemic symptoms)? @ -Uncomplicated Side effects of treatment? @ -No Exacerbation, Progression, or Severe Exacerbation? @ -No Poses a threat to life or bodily function? How? (Chest pain, USA, NV, pneumonia, PE, COPD, DKA, ARF, appy, cholecystitis, CVA, Diverticulitis, Homicidal, Suicidal, threat to staff... and all critical care pts) @ -No - Lab Data Result diagrams: 09/28/24 15:31 09/28/24 15:31 Lab Results 09/28/24 09/28/24 09/28/24 Range/Units 15:31 15:31 15:31 WBC 11.25 H (4.50-10.00) 10*3/uL RBC 4.25 (4.10-5.20) 10*6/uL Hgb 10.6 L (12.0-15.0) g/dL Hct 31.9 L (37.2-46.3) % MCV 75.1 L (80.0-97.0) fL MCH 24.9 L (27.0-32.0) pg MCHC 33.2 (32.0-37.0) g/dL Plt Count 224 (140-440) 10*3/uL MPV 12.1 (9.5-12.2) fL Immature Gran % (Auto) 0.4 % Neutrophils % 69.7 % Lymphocytes % 22.4 % Monocytes % 6.5 % Eosinophils % 0.6 % Basophils % 0.4 % Immature Gran # 0.04 (0.00-0.04) 10*3/uL Neutrophils # 7.85 H (1.80-7.70) 10*3/uL Lymphocytes # 2.52 (0.90-5.00) 10*3/uL Monocytes # 0.73 (0.20-1.00) 10*3/uL Eosinophils # 0.07 (0.04-0.35) 10*3/uL Basophils # 0.04 (0.00-0.10) 10*3/uL Sodium 137 (137-145) mmol/L Potassium 3.9 (3.5-5.1) mmol/L Chloride 109 H (98-107) mmol/L Carbon Dioxide 21 L (22-30) mmol/L Anion Gap 7 mmol/L BUN 3 L (7-17) mg/dL Creatinine 0.52 (0.52-1.04) mg/dL Est GFR (CKD-EPI)AfAm >90 (>60 ml/min/1.73 sqM) Est GFR (CKD-EPI)NonAf >90 (>60 ml/min/1.73 sqM) Glucose 88 (74-99) mg/dL Calcium 9.0 (8.4-10.2) mg/dL Total Bilirubin 0.5 (0.2-1.3) mg/dL AST 15 (14-36) U/L ALT 8 (4-34) U/L Alkaline Phosphatase 52 (38-126) U/L Total Protein 6.8 (6.3-8.2) g/dL Albumin 3.7 (3.5-5.0) g/dL Urine Color Urine Appearance (Clear) Urine pH (5.0-8.0) Ur Specific Blaine (1.001-1.035) Urine Protein (Negative) Urine Glucose (UA) (Negative) Urine Ketones (Negative) Urine Blood (Negative) Urine Nitrite (Negative) Urine Bilirubin (Negative) Urine Urobilinogen (<2.0) mg/dL Ur Leukocyte Esterase (Negative) Urine RBC (0-5) /hpf Urine WBC (0-5) /hpf Ur Squamous Epith Cells (0-4) /hpf Urine Bacteria (None) /hpf Urine HCG, Qual Detected (Not Detectd) 09/28/24 Range/Units 15:31 WBC (4.50-10.00) 10*3/uL RBC (4.10-5.20) 10*6/uL Hgb (12.0-15.0) g/dL Hct (37.2-46.3) % MCV (80.0-97.0) fL MCH (27.0-32.0) pg MCHC (32.0-37.0) g/dL Plt Count (140-440) 10*3/uL MPV (9.5-12.2) fL Immature Gran % (Auto) % Neutrophils % % Lymphocytes % % Monocytes % % Eosinophils % % Basophils % % Immature Gran # (0.00-0.04) 10*3/uL Neutrophils # (1.80-7.70) 10*3/uL Lymphocytes # (0.90-5.00) 10*3/uL Monocytes # (0.20-1.00) 10*3/uL Eosinophils # (0.04-0.35) 10*3/uL Basophils # (0.00-0.10) 10*3/uL Sodium (137-145) mmol/L Potassium (3.5-5.1) mmol/L Chloride (98-107) mmol/L Carbon Dioxide (22-30) mmol/L Anion Gap mmol/L BUN (7-17) mg/dL Creatinine (0.52-1.04) mg/dL Est GFR (CKD-EPI)AfAm (>60 ml/min/1.73 sqM) Est GFR (CKD-EPI)NonAf (>60 ml/min/1.73 sqM) Glucose (74-99) mg/dL Calcium (8.4-10.2) mg/dL Total Bilirubin (0.2-1.3) mg/dL AST (14-36) U/L ALT (4-34) U/L Alkaline Phosphatase (38-126) U/L Total Protein (6.3-8.2) g/dL Albumin (3.5-5.0) g/dL Urine Color Colorless Urine Appearance Cloudy H (Clear) Urine pH 7.5 (5.0-8.0) Ur Specific Blaine 1.014 (1.001-1.035) Urine Protein Negative (Negative) Urine Glucose (UA) Negative (Negative) Urine Ketones Negative (Negative) Urine Blood Negative (Negative) Urine Nitrite Negative (Negative) Urine Bilirubin Negative (Negative) Urine Urobilinogen <2.0 (<2.0) mg/dL Ur Leukocyte Esterase Negative (Negative) Urine RBC 2 (0-5) /hpf Urine WBC 6 H (0-5) /hpf Ur Squamous Epith Cells 5 H (0-4) /hpf Urine Bacteria Rare H (None) /hpf Urine HCG, Qual (Not Detectd) Disposition Clinical Impression: Abdominal pain during , 17 weeks gestation of Disposition: HOME SELF-CARE Condition: Stable Instructions (If sedation given, give patient instructions): at 15 to 18 Weeks (ED) Additional Instructions: Please return to the Emergency Department if symptoms worsen or any other concerns. Please start taking a vitamin. Follow-up with OB specialist. Is patient prescribed a controlled substance at d/c from ED?: No Referrals: None,Stated [Primary Care Provider] - 1-2 days Maggie Dean MD [STAFF PHYSICIAN] - 1-2 days Time of Disposition: 17:46
[2024-09-28 15:58] LABS: ALT 8 U/L (4-34); AST 15 U/L (14-36); African American GFR (CKD) >90 (>60 ml/min/1.73 sqM); Albumin 3.7 g/dL (3.5-5.0); Alkaline Phosphatase 52 U/L (38-126); Anion Gap 7 mmol/L; Blood Urea Nitrogen 3 mg/dL (7-17); Carbon Dioxide 21 mmol/L (22-30); Chloride 109 mmol/L (98-107); Glucose 88 mg/dL (74-99); Non-African American GFR(CKD) >90 (>60 ml/min/1.73 sqM); Potassium 3.9 mmol/L (3.5-5.1); Sodium 137 mmol/L (137-145); Total Bilirubin 0.5 mg/dL (0.2-1.3); Total Protein 6.8 g/dL (6.3-8.2)
--- NOTE | 2024-09-28 17:01 | US ---
EXAMINATION TYPE: US OB >= 14 wk fetus DATE OF EXAM: 09/28/2024 COMPARISON: None CLINICAL INDICATION: Female, 24 years old with history of lower ab cramping, + preg, LMP end of 06/09 24; Right sided back pain that radiates to the front TECHNIQUE: Transabdominal (TA) FINDINGS: GESTATIONAL AGE / DATING Physician Established: Not yet established Dates by LMP: LMP unknown Dates by First Scan: No previous this is first scan Dates by Current Scan: (17 weeks/0 days) EDC: 03/08/25 Beta HCG (if available): Not available at this time SURVEY IUP: Single PLACENTA: Anterior PREVIA: Low Lying, difficult to assess due to adjacent uterine contraction MIS: 12.8 cm Normal CERVICAL LENGTH (transabdominal: norm > 3.0cm): 3.4 cm BIOMETRY PRESENTATION: Variable LIE: Transverse with head maternal R BPD: 3.5 cm 16 weeks / 5 days HC: 12.8 cm 16 weeks / 4 days AC: 11.6 cm 17 weeks / 3 days FL: 2.4 cm 17 weeks / 2 days ESTIMATED WEIGHT IN GRAMS: 187 grams ESTIMATED WEIGHT IN LBS/OZ: 0 lbs. 7 oz. WEIGHT PERCENTAGE BASED ON ESTABLISHED DATES: LMP unknown% HC/AC: 1.1 Normal FL/AC: 20.9 Normal HEART RATE: 149 bpm RHYTHM: Normal Uterine contraction noted at right lower uterine segment through duration of exam. This may exaggerat e length of cervical canal. IMPRESSION: Single live intrauterine gestation ultrasound age 17 weeks 0 days. Additional information as describe d above. [facility], , 09/28/2024 4:58 PM
[2024-09-28 17:06] LABS: Appearance,Urine Cloudy (Clear); Bacteria,Urine Rare /hpf; Bilirubin,Urine Negative (Negative); Blood,Urine Negative (Negative); Color,Urine Colorless; Glucose,Urine (UA) Negative (Negative); Ketones,Urine Negative (Negative); Leukocyte Esterase,Urine Negative (Negative); Nitrite,Urine Negative (Negative); PH, Urine 7.5 (5.0-8.0); Protein,Urine Negative (Negative); RBC,Urine 2 /hpf (0-5); Specific Gravity,Urine 1.014 (1.001-1.035); Squamous Epithelial Cell,Urine 5 /hpf (0-4); Urobilinogen,Urine <2.0 mg/dL (<2.0); WBC,Urine 6 /hpf (0-5)
== END 2024-09-28 18:07 | disposition home or self-care (01) ==
LOC: EC 15:02
DX: O26.892 Other specified pregnancy related conditions, second trimester (principal); O99.332 Smoking (tobacco) complicating pregnancy, second trimester; F17.290 Nicotine dependence, other tobacco product, uncomplicated; Z3A.17 17 weeks gestation of pregnancy
CPT/HCPCS: 36415; 76805; 80053; 81001; 81025; 84702; 85025; 99284